=== PATIENT | female | born 2005 | race Caucasian/White ===

== ENCOUNTER 2024-07-01 21:27 | Emergency (ER) | payer MEDICAID ==
[~2024-07-01] VITALS: Ht 152.4 cm; Wt 63.0 kg
[2024-07-01 21:48] VITALS: O2SAT 97
[2024-07-01] MEDS ORDERED: CEFTRIAXONE SODIUM 500MG VIAL IM ONE (22:30)
[2024-07-01 23:05] LABS: CLARITY URINE CLEAR (CLEAR); COLOR URINE YELLOW (YELLOW); GLUCOSE URINE NEGATIVE (NEGATIVE); KETONES URINE NEGATIVE (NEGATIVE); LEUKOCYTE ESTERASE URINE TRACE (NEGATIVE); NITRITE URINE NEGATIVE (NEGATIVE); OCCULT BLOOD URINE NEGATIVE (NEGATIVE); PH URINE 7.5 (4.5-8.0); PROTEIN URINE NEGATIVE (NEGATIVE); SPECIFIC GRAVITY URINE 1.014 (1.005-1.030)
[2024-07-01 23:17] LABS: BACTERIA URINE 1+; RBC URINE 0-2 /hpf (0-2); SQUAMOUS EPITHELIAL CELL URINE 1+ /lpf (RARE/1+)
[2024-07-01] MEDS ORDERED: GUAI-450 MT (23:42)
[2024-07-01 23:59] VITALS: BP 126/76; PULSE 100; RESP 16; TEMP 36.8; O2SAT 97
[2024-07-01] MEDS: ACETAMINOPHEN 500MG TABLET PO ONE (23:59)
[2024-07-02] MEDS: ONDANSETRON 4MG ODT PO ONE
[2024-07-04 04:07] LABS: CHLAMYDIA TRACHOMATIS NAA Negative (Negative); NEISSERIA GONORRHOEAE NAA Negative (Negative)
== END 2024-07-02 00:03 | disposition home or self-care (01) ==
LOC: ER 21:27
DX: B34.9 Viral infection, unspecified (principal); Z11.3 Encounter for screening for infections with a predominantly sexual mode of transmission; Z20.2 Contact with and (suspected) exposure to infections with a predominantly sexual mode of transmission
CPT/HCPCS: 99283; 87491; 87591; 81003; 81025; 36415; Q0162

== ENCOUNTER 2024-07-02 19:45 | Emergency (ER) | payer MEDICAID ==
[~2024-07-02] VITALS: Ht 157.5 cm; Wt 66.0 kg
[~2024-07-02 19:45] MED LIST: GUAI-450 MT
[2024-07-02 19:53] VITALS: BP 114/88; PULSE 98; RESP 16; TEMP 36.7; O2SAT 98
[2024-07-02] MEDS: TETANUS, DIPHTHERIA, PERTUSSIS VAC/PF 0.5ML (>10YR OLD) IM ONE (22:20)
[2024-07-02] MEDS: BACITRACIN ZINC OINT UDPKT TOP ONE (22:20)
[2024-07-02] MEDS: LIDOCAINE HCL/PF 1% 10 MG/ML 5ML VIAL INFIL ONE (22:20)
== END 2024-07-03 00:52 | disposition home or self-care (01) ==
LOC: ER 19:45
DX: S01.81XA Laceration without foreign body of other part of head, initial encounter (principal); F32.A Depression, unspecified; Z79.899 Other long term (current) drug therapy; Y08.89XA Assault by other specified means, initial encounter; Y93.89 Activity, other specified; Y92.89 Other specified places as the place of occurrence of the external cause; Y99.8 Other external cause status
CPT/HCPCS: 99285; 70450; 90715; 12011; 90471; J2003

== ENCOUNTER 2024-12-01 11:49 | Emergency (ER) | payer MEDICAID ==
[~2024-12-01] VITALS: Ht 165.1 cm; Wt 66.0 kg
[2024-12-01 11:55] VITALS: O2SAT 100
[2024-12-01] MEDS ORDERED: IBUP-1455 MT (13:24)
[2024-12-01 13:38] VITALS: BP 127/76; PULSE 81; RESP 16; TEMP 36.7; O2SAT 100
[2024-12-01] MEDS: IBUPROFEN 600MG TABLET PO ONE (13:39)
== END 2024-12-01 13:30 | disposition home or self-care (01) ==
LOC: ER 11:49
DX: M25.572 Pain in left ankle and joints of left foot (principal); F32.A Depression, unspecified; Z79.899 Other long term (current) drug therapy
CPT/HCPCS: 73610; 99283; Z7610

== ENCOUNTER 2025-02-09 18:36 | Emergency (ER) | payer MEDICAID ==
[~2025-02-09] VITALS: Ht 160 cm; Wt 80.0 kg
[~2025-02-09 18:36] MED LIST changes: +IBUP-1455 MT
[2025-02-09 18:46] VITALS: O2SAT 98
[2025-02-09 20:00] LABS: BASOPHILS % 0.2 % (0.0-2.0); EOSINOPHILS % 2.6 % (0.0-5.0); HEMATOCRIT. 38.8 % (36.0-48.0); HEMOGLOBIN. 12.8 g/dL (12.0-16.0); LYMPHOCYTES % 29.9 % (20.0-50.0); MEAN PLATELET VOLUME 8.6 fl (7.4-10.4); MONOCYTES % 6.8 % (2.0-8.0); NEUTROPHILS % 60.5 % (40.0-76.0); PLATELET 191 x1000/uL (130-400); RED BLOOD CELL COUNT 4.40 mill/uL (4.2-5.4); RED CELL DISTRIBUTION WIDTH 16.0 % (11.6-14.6)
[2025-02-09 20:07] LABS: CLARITY URINE CLOUDY (CLEAR); COLOR URINE YELLOW (YELLOW); GLUCOSE URINE NEGATIVE (NEGATIVE); KETONES URINE NEGATIVE (NEGATIVE); LEUKOCYTE ESTERASE URINE 2+ (NEGATIVE); NITRITE URINE NEGATIVE (NEGATIVE); OCCULT BLOOD URINE 1+ (NEGATIVE); PH URINE 7.0 (4.5-8.0); PROTEIN URINE TRACE (NEGATIVE); SPECIFIC GRAVITY URINE 1.020 (1.005-1.030); UROBILINOGEN URINE 1.0 E.U./dL (0.2-1.0)
[2025-02-09 20:07] LABS: CREATININE 0.7 mg/dL (0.6-1.0); UREA NITROGEN BLOOD 8 mg/dL (9-23)
[2025-02-09 20:52] LABS: BACTERIA URINE 1+; SQUAMOUS EPITHELIAL CELL URINE 1+ /lpf (RARE/1+)
[2025-02-09] MEDS ORDERED: FLUC150T46 MT (21:32)
[2025-02-09] MEDS ORDERED: NITR100C MT (21:32)
[2025-02-09 21:54] VITALS: BP 123/82; PULSE 80; RESP 18; TEMP 36.9; O2SAT 98
[2025-02-13 05:09] LABS: CHLAMYDIA TRACHOMATIS NAA Negative (Negative); NEISSERIA GONORRHOEAE NAA Negative (Negative)
== END 2025-02-09 22:45 | disposition home or self-care (01) ==
LOC: ER 18:36
DX: N39.0 Urinary tract infection, site not specified (principal); Z79.899 Other long term (current) drug therapy
CPT/HCPCS: 36415; 80048; 81003; 85025; 87210; 87491; 87591; 99284